=== PATIENT | female | born 1990 ===

== ENCOUNTER 2025-01-22 21:28 | Emergency (ER) | payer SELFPAY | END 2025-01-22 23:14 | disposition home or self-care (01) | LOC: JD.ED 21:28 | DX: S90.32XA Contusion of left foot, initial encounter (principal); F17.210 Nicotine dependence, cigarettes, uncomplicated; X50.1XXA Overexertion from prolonged static or awkward postures, initial encounter; Y93.89 Activity, other specified; Y99.0 Civilian activity done for income or pay | CPT/HCPCS: 73600-26-LT; 73600-LT; 73630-26-LT; 73630-LT; 99283 ==